=== PATIENT | male | born 1990 | race African-American/Black ===

== ENCOUNTER 2016-02-22 13:20 | Emergency (ER) | payer OTHER ==
[~2016-02-22] VITALS: Ht 191.8 cm; Wt 85.0 kg
[2016-02-22 13:40] VITALS: BP 126/87; PULSE 79; RESP 18; TEMP 98.4; O2SAT 97
[2016-02-22 14:04] LABS: AUTOMATED NEUTROPHIL # 1.8 TH/MM3 (1.8-7.7); BASOPHIL % 0.5 % (0.0-2.0); EOSINOPHIL # 0.1 TH/MM3 (0-0.4); EOSINOPHIL % 1.3 % (0.0-4.0); HEMATOCRIT 44.2 % (39.0-51.0); HEMO FLAGS DIFF FINAL; LYMPH % 54.2 % (9.0-44.0); LYMPHOCYTE # 2.6 TH/MM3 (1.0-4.8); MEAN CELL VOLUME 89.2 FL (80.0-100.0); MEAN CORPUSCULAR HEMOGLOBIN 30.4 PG (27.0-34.0); MEAN CORPUSCULAR HGB CONC 34.1 % (32.0-36.0); MONO % 7.1 % (0.0-8.0); NEUT % 36.9 % (16.0-70.0); PLATELET COUNT 195 TH/MM3 (150-450); RED BLOOD COUNT 4.96 MIL/MM3 (4.50-5.90); RED CELL DISTRIBUTION WIDTH 13.3 % (11.6-17.2); WHITE BLOOD COUNT 4.8 TH/MM3 (4.0-11.0)
[2016-02-22 14:16] LABS: ANION GAP 5 MEQ/L (5-15); BICARBONATE 27.4 MEQ/L (21.0-32.0); BLOOD UREA NITROGEN 12 MG/DL (7-18); CHLORIDE 108 MEQ/L (98-107); GLOMERULAR FILTRATION RATE 97 ML/MIN (>89); POTASSIUM 4.4 MEQ/L (3.5-5.1); SODIUM (NA) 140 MEQ/L (136-145)
--- NOTE | 2016-02-22 14:26 | PD ---
HPI Chief Complaint: Psychiatric Symptoms Time Seen by Provider: 14:23 Travel History International Travel<30 days: No Contact w/Intl Traveler<30days: No Traveled to known affect area: No History of Present Illness HPI Patient is a 25-year-old male who was sent to the emergency Department under Reyes act for major depressive disorder. Patient reports that he is not suicidal or homicidal, he states that he has been very depressed and asked the [facility] doctor to prescribe an antidepressant. At that time he was advised that he would need to come to the emergency department for evaluation. Patient denies any physical complaints. He denies any history of suicide attempts. Patient is a and served in [employer]. He had no previous issues with depression prior to that time. He does report marijuana use, alcohol use. [facility] Past Medical History Medical History: Denies Significant Hx Psychiatric: Yes (depression, anxiety) Respiratory: No Past Surgical History Surgical History: No Previous Surgery Body Medical Devices: screw in wrist Social History Alcohol Use: Yes (ETOH occasional) Tobacco Use: No Substance Use: Yes (occasional marijaunia) Allergies-Medications (Allergen,Severity, Reaction): Coded Allergies: No Known Allergies (Unverified , 02/22/16) Reported Meds & Prescriptions Reported Meds & Active Scripts Active No Active Prescriptions or Reported Medications Review of Systems Except as stated in HPI: all other systems reviewed are Neg Psychiatric: Positive: Depression, Substance Abuse Physical Exam Narrative GENERAL: Well-nourished, well-developed patient. SKIN: Warm and dry. HEAD: Normocephalic. EYES: No scleral icterus. No injection or drainage. NECK: Supple, trachea midline. No JVD or lymphadenopathy. CARDIOVASCULAR: Regular rate and rhythm without murmurs, gallops, or rubs. RESPIRATORY: Breath sounds equal bilaterally. No accessory muscle use. GASTROINTESTINAL: Abdomen soft, non-tender, nondistended. MUSCULOSKELETAL: No cyanosis, or edema. BACK: Nontender without obvious deformity. No CVA tenderness. PSYCHIATRIC: No delusional thought processes. No hallucinations. Data Data Last Documented VS Vital Signs Date Time Temp Pulse Resp B/P Pulse Ox O2 Delivery O2 Flow Rate FiO2 02/22/16 13:40 98.4 79 18 126/87 97 Orders Complete Blood Count With Diff (02/22/16 13:47) Basic Metabolic Panel (Bmp) (02/22/16 13:47) Drug Screen, Random Urine (02/22/16 13:47) Alcohol (Ethanol) (02/22/16 13:47) Psych Screen (02/22/16 13:47) Labs Laboratory Tests Test 02/22/16 13:36 White Blood Count 4.8 TH/MM3 Red Blood Count 4.96 MIL/MM3 Hemoglobin 15.0 GM/DL Hematocrit 44.2 % Mean Corpuscular Volume 89.2 FL Mean Corpuscular Hemoglobin 30.4 PG Mean Corpuscular Hemoglobin 34.1 % Concent Red Cell Distribution Width 13.3 % Platelet Count 195 TH/MM3 Mean Platelet Volume 8.9 FL Neutrophils (%) (Auto) 36.9 % Lymphocytes (%) (Auto) 54.2 % Monocytes (%) (Auto) 7.1 % Eosinophils (%) (Auto) 1.3 % Basophils (%) (Auto) 0.5 % Neutrophils # (Auto) 1.8 TH/MM3 Lymphocytes # (Auto) 2.6 TH/MM3 Monocytes # (Auto) 0.3 TH/MM3 Eosinophils # (Auto) 0.1 TH/MM3 Basophils # (Auto) 0.0 TH/MM3 CBC Comment DIFF FINAL Differential Comment Sodium Level 140 MEQ/L Potassium Level 4.4 MEQ/L Chloride Level 108 MEQ/L Carbon Dioxide Level 27.4 MEQ/L Anion Gap 5 MEQ/L Blood Urea Nitrogen 12 MG/DL Creatinine 1.13 MG/DL Estimat Glomerular Filtration 97 ML/MIN Rate Random Glucose 106 MG/DL Calcium Level 9.1 MG/DL Ethyl Alcohol Level LESS THAN 3 MG/DL MDM Medical Decision Making Medical Screen Exam Complete: Yes Emergency Medical Condition: Yes Interpretation(s) Vital Signs Date Time Temp Pulse Resp B/P Pulse Ox O2 Delivery O2 Flow Rate FiO2 02/22/16 13:40 98.4 79 18 126/87 97 Differential Diagnosis Major depression versus substance abuse versus mood disorder versus delirium versus psychosis versus suicidal ideations versus other Narrative Course Patient is a 25-year-old male who presents emergency room for evaluation of depression. [facility] [place] [facility]. He denies any suicidal or homicidal ideations, he denies any physical complaints at this time. Patient is cooperative, pleasant. Labs ordered and pending, psych screen ordered and pending medical clearance. CBC, chemistry, alcohol level are unremarkable. Urine drug screen is pending however patient does admit to smoking marijuana. Patient's vital signs are stable. Patient is medically cleared at this time for psychiatric evaluation. Diagnosis Primary Impression: Medical clearance for psychiatric admission Additional Impression: Depression Qualified Code: F32.9 - Depression, unspecified depression type Scripts No Active Prescriptions or Reported Meds Condition: Stable Ruth Keller Feb 22, 2016 14:26
[2016-02-22 16:52] LABS: AMPHETAMINE, URINE NEG (NEG); BARBITURATES, URINE NEG (NEG); COCAINE, URINE NEG (NEG)
[2016-02-22 18:24] VITALS: BP 124/78; PULSE 83; RESP 18; TEMP 98.5; O2SAT 98
[2016-02-22 22:23] VITALS: BP 144/80; PULSE 76; RESP 16; O2SAT 99
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
[2016-02-23 02:30] VITALS: BP 109/57; PULSE 81; RESP 16; O2SAT 100
[2016-02-23 06:00] VITALS: BP 113/66; PULSE 73; RESP 18; O2SAT 100
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
== END 2016-02-23 10:12 | disposition home or self-care (01) ==
LOC: NEDAMB 13:20 → NEPJ 02-23 10:12
DX: F32.9 Major depressive disorder, single episode, unspecified (principal)
CPT/HCPCS: 80048; 80307; 80320; 85025; 99283